=== PATIENT | female | born 1970 | race Caucasian/White ===

== ENCOUNTER → 2020-08-28 | Outpatient (CLI) | payer OTHER | LOC: M.RAD 12:40 | PROVIDERS: ATTEND Family Medicine | DX: Z12.31 Encounter for screening mammogram for malignant neoplasm of breast (principal) ==

== ENCOUNTER → 2021-03-10 | Outpatient (CLI) | payer OTHER ==
[~2021-03-10] VITALS: Ht 162.6 cm; Wt 104.3 kg
--- NOTE | 2021-03-12 16:02 | TST ---
[place] [address] [employer] STRESS TEST Name: ANDREWDONALD Ramos Room: [facility]#: [id number] Admission: 03/10/21 Attend Phys: Izzy Billingsley DO Discharge: Date of : 66 Date of Service: 03/10/21 1453 Report #: [id number] THIS REPORT FOR: cc: Izzy Billingsley Maggie M. DO Blick, David R. MD [facility] ~ cc: Izzy Billingsley DO DATE OF SERVICE: 03/10/2021 TYPE OF PROCEDURE: Exercise stress test. DESCRIPTION OF PROCEDURE: The patient was exercised on a [place] protocol exercise stress test. INDICATIONS: Chest pain. RESULTS: The patient had a pretest heart rate of 74, blood pressure 122/43. The patient was able to exercise for 6 minutes, achieving a peak heart rate of 162, which is greater than 90% of maximum predicted heart rate for the patient's age. The peak blood pressure was 263/88. In recovery, the patient had a heart rate of 88, blood pressure 118/84. The patient denied chest pain, which was terminated secondary to leg pain. The patient's resting ECG showed a sinus rhythm with no significant ST segment changes noted at baseline. With exercise, the patient developed downsloping ST segment depression and peak exercise was noted to have [address] segment depression in lead 2, 3, aVF as well as 1-1/[address] segment depression in V4, V5 and V6. The ST segment changes returned to normal within 3 minutes in recovery. There were no arrhythmias noted with exercise. IMPRESSION: 1. Adequate exercise tolerance. 2. No chest pain with exercise. 3. Nonspecific ST segment changes noted. FINDINGS: 1. Exercise capacity: Average. 2. Clinical response, nonischemic. 3. ECG response nondiagnostic. This exercise stress test was nondiagnostic secondary to nondiagnostic ST segment changes noted. If clinically indicated, [place] [address] [employer] [employer] TEST Name: ANDI MORALESDAVIDA Ramos Room: [facility]#: [id number] Admission: 03/10/21 Attend Phys: Izzy Billingsley DO Discharge: Date of : 66 Date of Service: 03/10/21 1453 Report #: [id number] with myocardial perfusion imaging to improve the specificity of exercise stress testing to rule out ischemia. <ELECTRONICALLY SIGNED> By: Bonifacio Magana MD, FACC 03/12/21 1602 1453 1715 Bonifacio Magana MD, FACC /nt
== END ==
LOC: M.CRD 14:54
PROVIDERS: ATTEND Family Medicine
DX: R07.9 Chest pain, unspecified (principal)